=== PATIENT | female | born 1965 | race Caucasian/White ===

== ENCOUNTER → 2017-06-04 | Outpatient (CLI) | payer BC ==
[2017-06-04 11:07] LABS: EKG EKG PERFORMED
[2017-06-04 11:36] LABS: CH 28.7; CHCM 30.9; HCT 38.8 % (34.0-46.0); HDW 2.08; HGB 12.4 gm/dL (11.4-16.0); MCH 29.9 pg (25.0-35.0); MCV 93.3 fL (80.0-100.0); Mean Platelet Volume 7.9; RBC 4.16 m/uL (3.80-5.40); RDW 13.1 % (11.5-15.5); WBC 4.5 k/uL (3.8-10.6)
[2017-06-04 11:38] LABS: Appearance,Urine Clear (Clear); Bilirubin,Urine Negative (Negative); Glucose,Urine (UA) Negative (Negative); Ketones,Urine Negative (Negative); Leukocyte Esterase,Urine Large (Negative); Mucus,Urine Occasional /hpf; Nitrite,Urine Negative (Negative); PH, Urine 6.5 (5.0-8.0); Particle Count 4016; Protein,Urine Negative (Negative); RBC,Urine 1 /hpf (0-5); Specific Gravity,Urine 1.014 (1.001-1.035); Squamous Epithelial Cell,Urine 2 /hpf (0-4); UA Billing (MACRO vs. MICRO) MICRO; Urobilinogen,Urine <2.0 mg/dL (<2.0); WBC,Urine 20 /hpf (0-5)
[2017-06-04 11:45] LABS: Partial Thromboplastin Time 23.6 sec (22.0-30.0); Prothrombin Time 10.5 sec (9.0-12.0)
[2017-06-04 11:47] LABS: Anion Gap 8 mmol/L; Blood Urea Nitrogen 15 mg/dL (7-17); Calcium 10.1 mg/dL (8.4-10.2); Carbon Dioxide 29 mmol/L (22-30); Chloride 105 mmol/L (98-107); Glucose 81 mg/dL (74-99); Non-African American GFR(MDRD) >60 (>60 ml/min/1.73 sqM); Potassium 4.4 mmol/L (3.5-5.1); Sodium 142 mmol/L (137-145)
--- NOTE | 2017-06-04 13:38 | XR ---
EXAMINATION TYPE: XR chest 2V DATE OF EXAM: 06/04/2017 COMPARISON: NONE HISTORY: Degenerative disc disease, preop TECHNIQUE: Frontal and lateral views of the chest are obtained. FINDINGS: There is no focal air space opacity, pleural effusion, or pneumothorax seen. The cardiac silhouette size is within normal limits. Surgical clips present in the right upper quadrant. The oss eous structures are intact. IMPRESSION: No acute cardiopulmonary process.
== END | disposition home or self-care (01) ==
LOC: LABWHC1 10:41
PROVIDERS: ATTEND Orthopaedic Surgery Orthopaedic Surgery of the Spine
DX: Z01.810 Encounter for preprocedural cardiovascular examination (principal); M48.02 Spinal stenosis, cervical region; M47.812 Spondylosis without myelopathy or radiculopathy, cervical region; M43.22 Fusion of spine, cervical region
CPT/HCPCS: 36415; 71020; 80048; 81001; 85027; 85610; 85730; 93005

== ENCOUNTER → 2018-08-10 | Outpatient (CLI) | payer OTHER ==
--- NOTE | 2018-08-10 16:39 | BD ---
EXAMINATION TYPE: Axial Bone Density DATE OF EXAM: 08/10/2018 CLINICAL HISTORY: Height: 65.75 Weight: 125 FRAX RISK QUESTIONS: Alcohol (3 or more units per day): no Family History (Parent hip fracture): no Glucocorticoids (More than 3mos): no (Ex: prednisone, prednisolone, methylprednisolone, dexamethasone, and hydrocortisone). History of Fracture in Adulthood: ribs Secondary Osteoporosis: 1. Type 1 Diabetes: no 2. Hyperthyroidism: no 3. Menopause before 45: no 4. Malnutrition: no 5. Chronic liver disease: no Rheumatoid Arthritis: no Current Tobacco Use: no RISK FACTORS HISTORY OF: Family History of Osteoporosis: no Active: yes Diet low in dairy products/other sources of calcium: no Postmenopausal woman: yes Take estrogen and/or progesterone medications: no Lost more than 2 inches in height since high school: no Frequent falls: no Poor Health: no Hyperparathyroidism: no Adrenal Insufficiency: no MEDICATIONS: Prednisone or other steroids: no Thyroid Medications: no Osteoporosis Medications: no Additional Medications: multivitamin Additional History: EXAM MEASUREMENTS: Bone mineral densitometry was performed using the [employer] System. Bone mineral density as measured about the Lumbar spine is: ----- L1-L4(G/cm2): 1.014 T Score Values are as follows: ----- L2: -1.6 ----- L3: -1.4 ----- L4: -1.7 ----- L1-L4: -1.4 Bone mineral density BASELINE Bone mineral density about the R hip (g/cm2): 0.741 Bone mineral density about the L hip (g/cm2): 0.756 T Score values are as follows: -----R Neck: -2.1 -----L Neck: -2.0 -----R Total: -2.4 -----L Total: -2.4 Bone mineral density BASELINE IMPRESSION: Osteopenia (T Score between -2.5 and -1). There is slightly increased risk of fracture and the patient may be considered for treatment. Re-Screen 2-5 years. NOTE: T-SCORE=SD OF THE YOUNG ADULT MEAN.
--- NOTE | 2018-08-13 12:08 | MM ---
Reason for exam: screening (asymptomatic). Last mammogram was performed 3 years and 3 months ago. History: Patient is postmenopausal. Family history of premenopausal breast cancer in cousin at age 40. MG 3D Screening Mammo W/Cad Bilateral CC and MLO view(s) were taken. Prior study comparison: April 26, 2015, bilateral MG screening mammo w CAD. October 09, 2011, bilateral digital screening mammo w/CAD. The breast tissue is heterogeneously dense. This may lower the sensitivity of mammography. No suspicious abnormality. No significant changes when compared with prior studies. ASSESSMENT: Negative, BI-RAD 1 RECOMMENDATION: Routine screening mammogram of both breasts in 1 year.
== END | disposition home or self-care (01) ==
LOC: RADMAMWWP 08:15
PROVIDERS: ATTEND Obstetrics & Gynecology
DX: Z12.31 Encounter for screening mammogram for malignant neoplasm of breast (principal); Z13.820 Encounter for screening for osteoporosis; M85.80 Other specified disorders of bone density and structure, unspecified site
CPT/HCPCS: 77063; 77067; 77080

== ENCOUNTER → 2019-08-21 | Outpatient (CLI) | payer OTHER ==
--- NOTE | 2019-08-21 13:05 | US ---
EXAMINATION TYPE: US abdomen complete DATE OF EXAM: 08/21/2019 COMPARISON: US 2011 CLINICAL HISTORY: R10.84 Generalized abdominal pain. EXAM MEASUREMENTS: Liver Length: 13.2 cm Gallbladder Wall: Surgically absent cm CBD: 1.3 cm Spleen: 10.3 cm Right Kidney: 10.6 x 4.2 x 3.4 cm Left Kidney: 11.2 x 4.6 x 4.5 cm Pancreas: wnl Liver: wnl, cyst previously seen not seen today Gallbladder: Surgically absent Evidence for sonographic Pantoja's sign: No CBD: Large with echos within (? sludge?) Spleen: wnl Right Kidney: Normal cortical medullary differentiation Left Kidney: Normal cortical medullary differentiation Upper IVC: wnl Abd Aorta: wnl Sub optimal visualization of kidneys due to large amounts of bowel gas. No evident ascites. IMPRESSION: Dilation of the common bile duct likely due to postcholecystectomy change. There may be c holedocholithiasis, tumefactive sludge within the common bile duct. Additional findings above.
== END | disposition home or self-care (01) ==
LOC: RADUSMAIN 08:04
PROVIDERS: ATTEND Nurse Practitioner Family
DX: K83.8 Other specified diseases of biliary tract (principal); R14.3 Flatulence
CPT/HCPCS: 76700

== ENCOUNTER → 2020-01-16 | Outpatient (CLI) | payer MEDICARE ==
--- NOTE | 2020-01-16 09:49 | MR ---
EXAMINATION TYPE: MR MRCP DATE OF EXAM: 01/16/2020 COMPARISON: Ultrasound 2720 HISTORY: Abdominal Pain. Gallbladder has been removed. US showed Duct dilation. Standard multiplanar, multisequence MRI departmental protocol Multiplanar, multisequence images of the MRCP were acquired. FINDINGS: Exam limited by motion artifact. The gallbladder is surgically absent in the common bile duct is dilated measuring 1.4 cm. There appea rs to be a rather abrupt termination near the region of the ampulla. Tiny subcentimeter cyst are suspected within the liver. Liver somewhat heterogeneous correlate with L FTs. No hydronephrosis. Adrenal glands normal morphology. Aorta of normal caliber. Bowel gas pattern nonsp ecific. Spleen homogeneous in signal. Suspect a tiny 2 mm pancreatic tail cyst. There is central disc protrusion at the approximate level L 3-L4 and L2-L3. Left circumflex paracentral disc bulging in the lower thoracic spine. IMPRESSION: 1. There is dilation of the common bile duct measuring 1.4 cm which is slightly enlarged even for pos tcholecystectomy patient. No definite intraluminal signal is seen within the duct. There is rather ab rupt termination near the level of the ampulla. Correlate with dedicated ERCP as clinically warranted . 2. Hepatic cysts correlate with LFTs to assess for hepatocellular disease. Multiple tiny subcentimete r hepatic cysts.
[2020-01-16 10:30] LABS: Basophils % (A) 1 %; Eosinophils # (A) 0.1 k/uL (0-0.7); Eosinophils % (A) 2 %; HCT 39.4 % (34.0-46.0); HGB 12.5 gm/dL (11.4-16.0); Hypochromasia Slight; Lymphocytes # (A) 1.3 k/uL (1.0-4.8); Lymphocytes % (A) 34 %; MCHC 31.6 g/dL (31.0-37.0); MCV 94.7 fL (80.0-100.0); Mean Platelet Volume 7.4; Monocytes # (A) 0.2 k/uL (0-1.0); Monocytes % (A) 5 %; Neutrophils # (A) 2.1 k/uL (1.3-7.7); Neutrophils % (A) 56 %; Platelet Count 232 k/uL (150-450); RBC 4.16 m/uL (3.80-5.40); RDW 12.7 % (11.5-15.5); WBC 3.7 k/uL (3.8-10.6)
[2020-01-16 10:39] LABS: ALT 24 U/L (4-34); AST 35 U/L (14-36); African American GFR (CKD) >90 (>60 ml/min/1.73 sqM); Albumin 4.6 g/dL (3.5-5.0); Alkaline Phosphatase 62 U/L (38-126); Amylase 67 U/L (30-110); Anion Gap 6 mmol/L; Blood Urea Nitrogen 12 mg/dL (7-17); Calcium 9.6 mg/dL (8.4-10.2); Carbon Dioxide 30 mmol/L (22-30); Chloride 104 mmol/L (98-107); Glucose 88 mg/dL (74-99); Non-African American GFR(CKD) >90 (>60 ml/min/1.73 sqM); Potassium 4.5 mmol/L (3.5-5.1); Sodium 140 mmol/L (137-145); Total Bilirubin 0.6 mg/dL (0.2-1.3); Total Protein 7.4 g/dL (6.3-8.2)
[2020-01-16 10:55] LABS: T4, Free (Free Thyroxine) 0.92 ng/dL (0.78-2.19)
[2020-01-16 18:06] LABS: Gliadin AB IgA, Deaminated NEGATIVE (NEGATIVE); Gliadin AB IgA, Unit <0.2 U/mL; Gliadin AB IgG, Deaminated NEGATIVE (NEGATIVE)
== END | disposition home or self-care (01) ==
LOC: RADMRIMAIN 08:56
PROVIDERS: ATTEND Internal Medicine
DX: K83.8 Other specified diseases of biliary tract (principal); K76.89 Other specified diseases of liver; R10.9 Unspecified abdominal pain
CPT/HCPCS: 74181; 80053; 82150; 83516; 83690; 84439; 84443; 85025

== ENCOUNTER → 2020-07-17 | Outpatient (CLI) | payer MEDICARE ==
--- NOTE | 2020-07-22 09:01 | MM ---
Reason for exam: screening (asymptomatic). Last mammogram was performed 1 year and 11 months ago. History: Patient is postmenopausal. Family history of premenopausal breast cancer in cousin at age 40. Physical Findings: A clinical breast exam by your physician is recommended on an annual basis and results should be correlated with mammographic findings. MG 3D Screening Mammo W/Cad Bilateral CC and MLO view(s) were taken. Prior study comparison: August 10, 2018, bilateral MG 3d screening mammo w/cad. April 26, 2015, bilateral MG screening mammo w CAD. The breast tissue is heterogeneously dense. This may lower the sensitivity of mammography. No significant changes when compared with prior studies. ASSESSMENT: Benign, BI-RAD 2 RECOMMENDATION: Routine screening mammogram of both breasts in 1 year.
== END | disposition home or self-care (01) ==
LOC: RADMAMWWP 08:26
PROVIDERS: ATTEND Obstetrics & Gynecology
DX: Z12.31 Encounter for screening mammogram for malignant neoplasm of breast (principal)
CPT/HCPCS: 77063; 77067

== ENCOUNTER → 2021-09-18 | Outpatient (CLI) | payer MEDICARE ==
--- NOTE | 2021-09-18 17:57 | BD ---
EXAMINATION TYPE: Axial Bone Density DATE OF EXAM: 09/18/2021 COMPARISON: 08.10.2018 CLINICAL HISTORY: 55 YR OLD FEMALE.....ICD-10 CODE: Z13.820 BD DISORDER Height: 65.2 Weight: 121 FRAX RISK QUESTIONS: History of Fracture in Adulthood: YES RISK FACTORS HISTORY OF: HX OF RIB FX AN ADULT Postmenopausal woman: YES, AT AGE 48 YRS OLD Take estrogen and/or progesterone medications: YES, CREAM NOW Hyperparathyroidism: NO Adrenal Insufficiency: NO MEDICATIONS: Additional Medications: WELLBUTRIN, TOMIZAPAN, REFLUX MEDS, COLLAGEN POWDER Additional History: GLUTEN FREE, CELIAC DISEASE, EXAM MEASUREMENTS: Bone mineral densitometry was performed using the [employer] System. Bone mineral density as measured about the Lumbar spine is: ----- L1-L4(G/cm2): 1.002 T Score Values are as follows: ----- L1: -1.5 ----- L2: -1.5 ----- L3: -1.2 ----- L4: -1.8 ----- L1-L4: -1.5 Bone mineral density has: Increased 0.8% since study of: 08.10.2018 Bone mineral density about the R hip (g/cm2): 0.692 Bone mineral density about the L hip (g/cm2): 0.697 T Score values are as follows: -----R Neck: -2.5 -----L Neck: -2.2 -----R Total: -2.5 -----L Total: -2.5 Bone mineral density has: Decreased -2.0% since study of: 08.10.2018 FRAX%s: THERE IS A 16.5% CHANCE FOR A MAJOR OSTEOPOROTIC FX AND A 3.6% FOR HER HIPS.....PROBABILI TY FOR FX IN 10 YRS TIME IMPRESSION: Osteoporosis (T Score less than -2.5). There is increased fracture risk and therapy is usually indicated based on age. Re-Screen 1-2 years. NOTE: T-SCORE=SD OF THE YOUNG ADULT MEAN.
--- NOTE | 2021-09-22 09:37 | MM ---
Reason for exam: screening (asymptomatic). Last mammogram was performed 1 year and 2 months ago. History: Patient is postmenopausal. Family history of premenopausal breast cancer in cousin at age 40. Taking estrogen for 4 months. Physical Findings: A clinical breast exam by your physician is recommended on an annual basis and results should be correlated with mammographic findings. MG 3D Screening Mammo W/Cad Bilateral CC and MLO view(s) were taken. Prior study comparison: July 17, 2020, bilateral MG 3d screening mammo w/cad. August 10, 2018, bilateral MG 3d screening mammo w/cad. The breast tissue is heterogeneously dense. This may lower the sensitivity of mammography. No significant changes when compared with prior studies. ASSESSMENT: Benign, BI-RAD 2 RECOMMENDATION: Routine screening mammogram of both breasts in 1 year.
== END | disposition home or self-care (01) ==
LOC: RADBDWWP 07:22
PROVIDERS: ATTEND Obstetrics & Gynecology
DX: Z12.31 Encounter for screening mammogram for malignant neoplasm of breast (principal); M81.0 Age-related osteoporosis without current pathological fracture; M85.89 Other specified disorders of bone density and structure, multiple sites; Z80.3 Family history of malignant neoplasm of breast; Z78.0 Asymptomatic menopausal state
CPT/HCPCS: 77063; 77067; 77080

== ENCOUNTER → 2022-12-10 | Outpatient (CLI) | payer MEDICARE ==
--- NOTE | 2022-12-11 18:16 | MM ---
Reason for Exam: Screening (asymptomatic). Last mammogram was performed 1 year(s) and 3 month(s) ago. Patient History: Menarche at age 10. First Full-Term at age 18. Postmenopausal. Currently using Estrogen, for 4 months. Maternal cousin had breast cancer, age 40. Risk Values: Maryann 5 year model risk: 1.2%. NCI Lifetime model risk: 6.7%. Prior Study Comparison: 08/10/2018 Bilateral Screening Mammogram, [facility]. 07/17/2020 Bilateral Screening Mammogram, [facility]. 09/18/2021 Bilateral Screening Mammogram, [facility]. Tissue Density: The breast tissue is heterogeneously dense. This may lower the sensitivity of mammography. Findings: Analyzed By CAD. There is no suspicious group of microcalcifications or new suspicious mass in either breast. Overall Assessment: Negative, BI-RAD 1 Management: Screening Mammogram of both breasts in 1 year. . Patient should continue monthly self-breast exams. A clinical breast exam by your physician is recommended on an annual basis. This exam should not preclude additional follow-up of suspicious palpable abnormalities. Note on Maryann scores and lifetime risk: 1. A Maryann score greater than 3% is considered moderate risk. If this is the case, consider specialist referral to assess eligibility for a risk reducing agent. 2. If overall lifetime risk for the development of breast cancer is 20% or higher, the patient may qualify for future screening with alternating mammogram and breast MRI. Electronically signed and approved by: Cecille Dias M.D. Radiologist
== END | disposition home or self-care (01) ==
LOC: RADMAMWWP 08:22
PROVIDERS: ATTEND Obstetrics & Gynecology
DX: Z12.31 Encounter for screening mammogram for malignant neoplasm of breast (principal); Z80.3 Family history of malignant neoplasm of breast; Z78.0 Asymptomatic menopausal state
CPT/HCPCS: 77063; 77067

== ENCOUNTER → 2023-06-02 | Outpatient (CLI) | payer MEDICARE ==
[2023-06-02 12:39] LABS: Appearance,Urine Cloudy (Clear); Bacteria,Urine Rare /hpf; Bilirubin,Urine Negative (Negative); Blood,Urine Negative (Negative); Color,Urine Yellow; Glucose,Urine (UA) Negative (Negative); Hyaline Casts,Urine 1 /lpf (0-2); Ketones,Urine Negative (Negative); Leukocyte Esterase,Urine Negative (Negative); Mucus,Urine Occasional /hpf; Nitrite,Urine Negative (Negative); Protein,Urine Trace (Negative); RBC,Urine 12 /hpf (0-5); Specific Gravity,Urine 1.019 (1.001-1.035); Squamous Epithelial Cell,Urine 6 /hpf (0-4); Urobilinogen,Urine <2.0 mg/dL (<2.0); WBC,Urine 8 /hpf (0-5)
[2023-06-02 17:12] LABS: Basophils # (A) 0.04 X 10*3/uL (0.00-0.10); Basophils % (A) 0.6 %; Eosinophils # (A) 0.25 X 10*3/uL (0.04-0.35); Eosinophils % (A) 3.8 %; HCT 40.2 % (37.2-46.3); HGB 12.8 g/dL (12.0-15.0); Lymphocytes % (A) 18.3 %; MCHC 31.8 g/dL (32.0-37.0); MCV 94.1 FL (80.0-97.0); Mean Platelet Volume 10.1 FL (9.5-12.2); Monocytes # (A) 0.58 X 10*3/uL (0.20-1.00); Monocytes % (A) 8.8 %; NRBC Per 100 WBC 0 X 10*3/uL (0.00-0.01); Neutrophils # (A) 4.46 X 10*3/uL (1.80-7.70); Neutrophils % (A) 67.9 %; Platelet Count 320 X 10*3/uL (140-440); RBC 4.27 X 10*6/uL (4.10-5.20); RDW 13.7 % (11.5-14.5); WBC 6.57 X 10*3/uL (4.50-10.00)
[2023-06-02 17:13] LABS: ALT 99 U/L (8-44); AST 34 U/L (13-35); Albumin 4.3 g/dL (3.8-4.9); Albumin/Globulin Ratio 1.95 Ratio (1.60-3.17); Alkaline Phosphatase 105 U/L (41-126); BUN/Creat Ratio 23.86 Ratio (12.00-20.00); Blood Urea Nitrogen 16.7 mg/dL (9.0-27.0); Calcium 9.8 mg/dL (8.7-10.3); Carbon Dioxide 26.7 mmol/L (21.6-31.8); Chloride 102 mmol/L (96-109); Globulin 2.2 g/dL (1.6-3.3); Glucose 78 mg/dL (70-110); Potassium 4.3 mmol/L (3.5-5.5); Rheumatoid Factor, Qnt <15 IU/mL (0-15); Sodium 141 mmol/L (135-145); Total Bilirubin 0.4 mg/dL (0.3-1.2); Total Protein 6.5 g/dL (6.2-8.2)
[2023-06-02 17:45] LABS: Erythrocyte Sedimentation Rate 13 mm/Hr (0-30)
[2023-06-02 17:53] LABS: Hepatitis A Antibody IgM Nonreactive; Hepatitis B Core IgM Nonreactive; Hepatitis B Surface Antigen Nonreactive; Hepatitis C IgG Antibody Nonreactive
== END | disposition home or self-care (01) ==
LOC: LABWHC1 09:15
DX: L98.8 Other specified disorders of the skin and subcutaneous tissue (principal); M02.30 Reiter's disease, unspecified site; R21 Rash and other nonspecific skin eruption
CPT/HCPCS: 36415; 80053; 80074; 81001; 85025; 85652; 86038; 86140; 86431; 86618

== ENCOUNTER → 2024-03-14 | Outpatient (CLI) | payer MEDICARE ==
--- NOTE | 2024-03-31 20:48 | MM ---
Reason for Exam: Screening (asymptomatic). Last mammogram was performed 1 year(s) and 3 month(s) ago. Patient History: Menarche at age 10. First Full-Term at age 18. Postmenopausal. Currently using Estrogen, for 4 months. Maternal cousin had breast cancer, age 40. Risk Values: Maryann 5 year model risk: 1.3%. NCI Lifetime model risk: 6.6%. Prior Study Comparison: 07/17/2020 Bilateral Screening Mammogram, [facility]. 09/18/2021 Bilateral Screening Mammogram, [facility]. 12/10/2022 Bilateral MG 3D screening mammo w/cad, [facility]. Tissue Density: The breasts are heterogeneously dense, which may obscure small masses. Findings: Analyzed By CAD. There is no suspicious group of microcalcifications or new suspicious mass in either breast. Overall Assessment: Negative, BI-RAD 1 Management: Screening Mammogram of both breasts in 1 year. . Patient should continue monthly self-breast exams. A clinical breast exam by your physician is recommended on an annual basis. This exam should not preclude additional follow-up of suspicious palpable abnormalities. Note on Maryann scores and lifetime risk: 1. A Maryann score greater than 3% is considered moderate risk. If this is the case, consider specialist referral to assess eligibility for a risk reducing agent. 2. If overall lifetime risk for the development of breast cancer is 20% or higher, the patient may qualify for future screening with alternating mammogram and breast MRI. Electronically signed and approved by: Cecille Dias M.D. Radiologist
== END | disposition home or self-care (01) ==
LOC: RADMAMWWP 13:27
PROVIDERS: ATTEND Family Medicine
DX: Z12.31 Encounter for screening mammogram for malignant neoplasm of breast
CPT/HCPCS: 77063; 77067

== ENCOUNTER → 2024-03-28 | Outpatient (CLI) | payer MEDICARE ==
[2024-03-28 09:00] VITALS: BP 147/91; PULSE 75; RESP 17; TEMP 98
--- NOTE | 2024-03-28 09:52 | P.HPOB ---
History of Present Illness H&P Date: 03/28/24 Chief Complaint: The patient is here for her routine gynecologic exam. This is a 58-year-old with an LMP of 2019. Patient is here to establish with at this office. She previously saw Dr. Jones for her gynecologic care. She was last seen there about 1 to 2 years ago. She is without gynecologic complaints and denies any postmenopausal bleeding. She had a mammogram done here on 03/14/2024 with the results pending. They were not able to do the bone density test that was originally ordered because of computer problems. Review of Systems The patient has gained 5 pounds over the last year. She denies respiratory, cardiac, or G.I. problems. Past Medical History Past Medical History: GERD/Reflux, Osteoarthritis (OA) Additional Past Medical History / Comment(s): Low cardiac ejection fraction. Osteoporosis. Past [employer] history: History of genital HSV. History of Any Multi-Drug Resistant Organisms: None Reported Past Surgical History: Appendectomy, Back Surgery, Section, Cholecystectomy, Tonsillectomy, Tubal Ligation Additional Past Surgical History / Comment(s): section x 2. Neck cervical fusion surgery. Colonoscopy 2016. Past Anesthesia/Blood Transfusion Reactions: Motion Sickness Past Psychological History: Anxiety, Depression Smoking Status: Never smoker Past Alcohol Use History: Occasional (About 5 drinks per week.) Additional Past Alcohol Use History / Comment(s): STARTED SMOKING AT AGE 12 QUIT IN 1987 SMOKED 1PPD Past Drug Use History: None Reported Additional History: She is and has been with her boyfriend since 2008. They live together. She does not work outside of the home. - Past Family History Mother Family Medical History: Cancer, Dementia Additional Family Medical History / Comment(s): LUNG CANCER, ANEURYSM. . Maternal grandparents also had aneurysms. Father Family Medical History: Cancer Additional Family Medical History / Comment(s): LUNG CANCER. . Medications and Allergies Home Medications Medication Instructions Recorded Confirmed Type Omeprazole 20 mg PO DAILY 12/31/15 03/28/24 History buPROPion [Wellbutrin] 150 mg PO DAILY 12/31/15 03/28/24 History Acyclovir 1 gm TOPICAL DIRECTED 03/28/24 03/28/24 History Cyclobenzaprine [Flexeril] 10 mg PO TID PRN 03/28/24 03/28/24 History Estradiol Cream [Estrace Cream 1 applic VAGINAL DIRECTED 03/28/24 03/28/24 History 0.01%] Temazepam [Restoril] 15 mg PO HS 03/28/24 03/28/24 History valACYclovir HCL [Valtrex] 500 mg PO DAILY 03/28/24 03/28/24 History Allergies Allergy/AdvReac Type Severity Reaction Status Date / Time codeine Allergy Nausea & Verified 03/28/24 08:55 Vomiting povidone-iodine Allergy SKIN Verified 03/28/24 08:55 [From Betadine] PEELED OFF" soap [From Betadine] Allergy SKIN Verified 03/28/24 08:55 PEELED OFF" Exam Vital Signs Temp Pulse Resp BP Pulse Ox 03/28/24 08:57 98 F 75 17 147/91 99 Intake and Output 03/27/24 03/28/24 03/28/24 22:59 06:59 14:59 Other: Weight 58.967 kg Height 5 feet 6 inches, weight 130 pounds, BMI 21.0. This is a well-developed well-nourished white female who is alert and oriented times 3 in no acute distress. HEENT: Within normal limits. NECK: Supple without mass or thyromegaly. CHEST AND LUNGS: Clear to auscultation. HEART: Regular rate and rhythm. BREASTS: Are without mass or discharge. AXILLARY EXAM: Negative for adenopathy. BACK: Negative for CVA tenderness. ABDOMEN: Soft, nontender, without palpable masses. PELVIC EXAM: Normal external genitalia with mild atrophy. Cervix and vagina appear normal with mild atrophy. There is no unusual discharge. There is no evidence of prolapse. The uterus is midposition, nongravid size and nontender. There are no palpable adnexal masses or tenderness. RECTAL EXAM: Rectovaginal exam is negative for mass or tenderness and is negative for occult blood. EXTREMITIES: Nontender. IMPRESSION: 1. 58-year-old menopausal female with normal gynecologic exam. 2. History of genital HSV 3. History of osteoporosis. PLAN: 1. Pap smear cotest was performed. 2. Self breast awareness was discussed with the patient. We have also discussed symptoms associated with inflammatory breast cancer. 3. Screening mammogram was done on 03/14/2024 with the results pending. 4. Osteoporosis management was discussed. I have stressed the importance of adequate calcium, vitamin D and regular exercise. Recommended amounts of calcium and vitamin D were also discussed. Information on osteoporosis and Fosamax were given to the patient. Since her last bone density test was about 2 and half years ago, we will plan on having her repeat the bone density test. Slip was given to the patient for this. When these results are obtained, we will we will further discuss possible treatment. 5. She states she has done well with estradiol vaginal cream. The electronic prescription for estradiol vaginal cream, 1 g into the vagina 2 times weekly will be sent to [facility] pharmacy. 6. Electronic prescription for Valtrex 500 mg p.o. twice daily x 3 days will be sent to [facility] pharmacy. 6 refills will be given to the patient. 7. She was advised to return in one year for her annual well woman exam.
== END ==
LOC: WWCWWP 08:38
PROVIDERS: ATTEND Obstetrics & Gynecology
DX: Z01.419 Encounter for gynecological examination (general) (routine) without abnormal findings (principal); M81.0 Age-related osteoporosis without current pathological fracture; Z78.0 Asymptomatic menopausal state; Z87.891 Personal history of nicotine dependence; Z87.42 Personal history of other diseases of the female genital tract; Z88.5 Allergy status to narcotic agent; Z88.8 Allergy status to other drugs, medicaments and biological substances

== ENCOUNTER → 2024-04-12 | Outpatient (CLI) | payer MEDICARE ==
--- NOTE | 2024-04-12 21:26 | BD ---
EXAMINATION TYPE: Axial Bone Density DATE OF EXAM: 04/12/2024 CLINICAL HISTORY: 58 years old Female. ICD-10 CODE: Z78.0 M81.0 AGE RELATED OSTEO EXAMINATION TYPE: Axial Bone Density DATE OF EXAM: 04/12/2024 COMPARISON: 08.10.2018 CLINICAL HISTORY: 55 YR OLD FEMALE.....ICD-10 CODE: Z13.820 BD DISORDER Height: 65.2 Weight: 121 FRAX RISK QUESTIONS: History of Fracture in Adulthood: YES RISK FACTORS HISTORY OF: HX OF RIB FX AN ADULT Postmenopausal woman: YES, AT AGE 48 YRS OLD Take estrogen and/or progesterone medications: YES, CREAM NOW Hyperparathyroidism: NO Adrenal Insufficiency: NO MEDICATIONS: Additional Medications: WELLBUTRIN, TOMIZAPAN, REFLUX MEDS, COLLAGEN POWDER Additional History: GLUTEN FREE, CELIAC DISEASE, EXAM MEASUREMENTS: Bone mineral densitometry was performed using the [employer] System. Bone mineral density as measured about the Lumbar spine is: ----- L1-L4(G/cm2): 1.002 T Score Values are as follows: ----- L1: -1.5 ----- L2: -1.5 ----- L3: -1.2 ----- L4: -1.8 ----- L1-L4: -1.5 Bone mineral density has: Increased 0.8% since study of: 08.10.2018 Bone mineral density about the R hip (g/cm2): 0.692 Bone mineral density about the L hip (g/cm2): 0.697 T Score values are as follows: -----R Neck: -2.5 -----L Neck: -2.2 -----R Total: -2.5 -----L Total: -2.5 Bone mineral density has: Decreased -2.0% since study of: 08.10.2018 FRAX%s: THERE IS A 16.5% CHANCE FOR A MAJOR OSTEOPOROTIC FX AND A 3.6% FOR HER HIPS.....PROBABILI TY FOR FX IN 10 YRS TIME IMPRESSION: Osteoporosis (T Score less than -2.5). There is increased fracture risk and therapy is usually indicated based on age. Re-Screen 1-2 years. NOTE: T-SCORE=SD OF THE YOUNG ADULT MEAN. Height: 64.8 Weight: 127 FRAX RISK QUESTIONS: History of Fracture in Adulthood: yes RISK FACTORS HISTORY OF: hx of rib fxs two times...separate incidents, MEDICATIONS: progesterone cream, wellbutrin, reflus meds,tomizapan, vitamins, EXAM MEASUREMENTS: Bone mineral densitometry was performed using the [employer] System. Bone mineral density as measured about the Lumbar spine is: ----- L1-L4(G/cm2): 0.969 T Score Values are as follows: ----- L1: -1.3 ----- L2: -2.0 ----- L3: -2.1 ----- L4: -1.8 ----- L1-L4: -1.8 Z Score Values are as follows: ----- L1: 0.2 ----- L2: -0.5 ----- L3: -0.6 ----- L4: -0.3 ----- L1-L4: -0.3 Bone mineral density has: Decreased -3.3% since study of: 09.18.2021 Bone mineral density about the R hip (g/cm2): 0.695 Bone mineral density about the L hip (g/cm2): 0.695 T Score values are as follows: -----R Neck: -2.4 -----L Neck: -2.3 -----R Total: -2.5 -----L Total: -2.5 Z Score values are as follows: -----R Neck: -1.0 -----L Neck: -0.9 -----R Total: -1.4 -----L Total: -1.4 Bone mineral density has: not changed 0.0% since study of: 09.18.2021 FRAX%s: The graph provided illustrates a 17.7% chance for a major osteoporotic fx and a 3.6% chance f or the hips probability for fx in 10 years time. IMPRESSION: Osteopenia (T Score between -2.5 and -1). There is slightly increased risk of fracture and the patient may be considered for treatment. Re-Screen 2-5 years. NOTE: T-SCORE=SD OF THE YOUNG ADULT MEAN. [facility], , 04/12/2024 9:23 PM
== END | disposition home or self-care (01) ==
LOC: RADBDWWP 09:07
PROVIDERS: ATTEND Obstetrics & Gynecology
CPT/HCPCS: 77080

== ENCOUNTER → 2025-02-07 | Outpatient (CLI) | payer MEDICARE ==
--- NOTE | 2025-02-07 09:34 | P.PN ---
Progress Note - Text Progress Note Date: 02/07/25 The patient called complaining of vulvar dryness and irritation. The estrogen cream has not been helping. The patient will be prescribed Kenalog 0.1% cream which she can use twice daily as needed for vulvar irritation. The electronic prescription was sent to [facility] pharmacy on . She was also advised to not over wash with soap and to avoid rubbing and scratching. If her symptoms are not improving within 3 days, she was instructed to call to make an appointment to be seen for this. If it does improve, she will be seen in March for her annual well woman examination.
== END ==
LOC: WWCWWP 09:14
PROVIDERS: ATTEND Obstetrics & Gynecology
DX: L29.2 Pruritus vulvae (principal); Z88.5 Allergy status to narcotic agent; Z91.041 Radiographic dye allergy status; Z91.048 Other nonmedicinal substance allergy status; Z87.891 Personal history of nicotine dependence